=== PATIENT | male | born 1960 | race Caucasian/White ===

== ENCOUNTER 2017-10-15 12:58 | Inpatient (IN) | payer MEDICAID, OTHER ==
[~2017-10-15] VITALS: Ht 190.5 cm; Wt 73.9 kg
[2017-10-15] MEDS ORDERED: DIAZ10 PO (13:07)
[2017-10-15] MEDS ORDERED: LORA0.5T2 PO (13:07)
[2017-10-15] MEDS ORDERED: HALOPERIDOL 5 MG TABLET PO ONE (13:30)
[2017-10-15] MEDS ORDERED: DiphenhydrAMINE HCL 50 MG CAPSULE PO ONE (13:30)
[2017-10-15] MEDS ORDERED: LORazepam 2 MG TABLET PO ONE (13:30)
[2017-10-15 17:25] VITALS: BP 145/63
[2017-10-15] MEDS: LORazepam 2 MG TABLET PO PRN (18:45)
[2017-10-15] MEDS: HALOPERIDOL 5 MG TABLET PO PRN (18:45)
[2017-10-15] MEDS: BACITRACIN 28.4 GM OINTMENT TP SCH (20:03)
[2017-10-15] MEDS: NICOTINE 14 MG/24 HOUR PATCH TD SCH (20:03)
[2017-10-15] MEDS: ZOLPIDEM TARTRATE 10 MG TABLET PO PRN (20:34)
[2017-10-16 02:51] VITALS: BP 135/79
[2017-10-16] MEDS: BACITRACIN 28.4 GM OINTMENT TP SCH ×2 (08:08→16:39)
[2017-10-16] MEDS: NICOTINE 14 MG/24 HOUR PATCH TD SCH (08:08)
[2017-10-16] MEDS: LORazepam 2 MG TABLET PO PRN ×3 (08:08→21:06)
[2017-10-16 08:14] VITALS: BP 114/80
[2017-10-16] MEDS ORDERED: NICOTINE 14 MG/24 HOUR PATCH TD SCH (09:00)
[2017-10-16] MEDS ORDERED: PETROLATUM,WHITE 71 GM JELLY TP PRN (09:30)
[2017-10-16] MEDS ORDERED: BENZOCAINE/MENTHOL LOZENGE MM PRN (09:30)
[2017-10-16] MEDS ORDERED: ACETAMINOPHEN 325 MG TABLET PO PRN (09:30)
[2017-10-16] MEDS ORDERED: ONDANSETRON HCL 4 MG TABLET PO PRN (09:30)
[2017-10-16] MEDS ORDERED: MAG HYDROX/AL HYDROX/SIMETH ES 30 ML SUSPENSION UDCUP PO PRN (09:30)
[2017-10-16] MEDS ORDERED: LOPERAMIDE HCL 2 MG CAPSULE PO PRN (09:30)
[2017-10-16] MEDS ORDERED: MAGNESIUM HYDROXIDE SUSPENSION 30 ML UDCUP PO PRN (09:30)
[2017-10-16] MEDS ORDERED: CloNIDine HCL 0.1 MG TABLET PO PRN (09:30)
[2017-10-16] MEDS ORDERED: IBUPROFEN 600 MG TABLET PO PRN (09:30)
[2017-10-16] MEDS ORDERED: BACITRACIN 28.4 GM OINTMENT TP PRN (09:30)
[2017-10-16] MEDS ORDERED: ALBUTEROL SULFATE HFA 90 MCG/PUFF 8 GM INHALER IH PRN (09:30)
[2017-10-16] MEDS: HALOPERIDOL 5 MG TABLET PO PRN (14:36)
[2017-10-16 16:33] VITALS: BP 104/62
[2017-10-16] MEDS: DIVALPROEX SODIUM 500 MG DR TABLET PO SCH (16:39)
[2017-10-16] MEDS: ZOLPIDEM TARTRATE 10 MG TABLET PO PRN (21:06)
[2017-10-16] MEDS: MIRTAZAPINE 15 MG TABLET PO SCH (21:06)
[2017-10-16] MEDS: OLANZapine 10 MG TABLET PO SCH (21:06)
[2017-10-17] MEDS: HALOPERIDOL 5 MG TABLET PO PRN ×2 (00:56→16:45)
[2017-10-17] MEDS: LORazepam 2 MG TABLET PO PRN ×2 (00:56→16:45)
[2017-10-17 00:58] VITALS: BP 135/80
[2017-10-17 08:12] VITALS: BP 109/62
[2017-10-17] MEDS: NICOTINE 14 MG/24 HOUR PATCH TD SCH (08:25)
[2017-10-17] MEDS: BACITRACIN 28.4 GM OINTMENT TP SCH ×2 (08:26→16:45)
[2017-10-17] MEDS: OMEPRAZOLE 20 MG CAPSULE PO SCH (08:26)
[2017-10-17] MEDS: DOCUSATE SODIUM 100 MG CAPSULE PO SCH (08:26)
[2017-10-17] MEDS: DIVALPROEX SODIUM 500 MG DR TABLET PO SCH ×2 (08:26→16:45)
[2017-10-17 16:26] VITALS: BP 124/61
[2017-10-17] MEDS: OLANZapine 10 MG TABLET PO SCH (20:19)
[2017-10-17] MEDS: ZOLPIDEM TARTRATE 10 MG TABLET PO PRN (20:20)
[2017-10-17] MEDS: MIRTAZAPINE 15 MG TABLET PO SCH (20:20)
[2017-10-18 06:43] VITALS: BP 110/65
[2017-10-18 08:10] VITALS: BP 124/62
[2017-10-18] MEDS: HALOPERIDOL 5 MG TABLET PO PRN ×2 (08:41→16:15)
[2017-10-18] MEDS: NICOTINE 14 MG/24 HOUR PATCH TD SCH (08:41)
[2017-10-18] MEDS: DIVALPROEX SODIUM 500 MG DR TABLET PO SCH ×2 (08:41→16:15)
[2017-10-18] MEDS: DOCUSATE SODIUM 100 MG CAPSULE PO SCH (08:41)
[2017-10-18] MEDS: LORazepam 2 MG TABLET PO PRN ×2 (08:41→16:15)
[2017-10-18] MEDS: OMEPRAZOLE 20 MG CAPSULE PO SCH (08:41)
[2017-10-18] MEDS: BACITRACIN 28.4 GM OINTMENT TP SCH ×2 (08:52→17:05)
[2017-10-18 16:16] VITALS: BP 116/65
[2017-10-18] MEDS ORDERED: HALOPERIDOL LACTATE 5 MG/ML VIAL IM ONE (19:15)
[2017-10-18] MEDS ORDERED: DiphenhydrAMINE HCL 50 MG/ML VIAL IM ONE (19:15)
[2017-10-18] MEDS ORDERED: LORazepam 2 MG/ML VIAL IM ONE (19:15)
[2017-10-18] MEDS: MIRTAZAPINE 15 MG TABLET PO SCH (20:43)
[2017-10-18] MEDS: OLANZapine 10 MG TABLET PO SCH (20:43)
[2017-10-19 04:23] VITALS: BP 117/80
[2017-10-19 08:21] VITALS: BP 103/60
[2017-10-19] MEDS: BACITRACIN 28.4 GM OINTMENT TP SCH ×2 (08:29→16:33)
[2017-10-19] MEDS: OMEPRAZOLE 20 MG CAPSULE PO SCH (08:29)
[2017-10-19] MEDS: LORazepam 2 MG TABLET PO PRN ×3 (08:29→20:34)
[2017-10-19] MEDS: DOCUSATE SODIUM 100 MG CAPSULE PO SCH (08:29)
[2017-10-19] MEDS: HALOPERIDOL 5 MG TABLET PO PRN ×2 (08:29→16:33)
[2017-10-19] MEDS: DIVALPROEX SODIUM 500 MG DR TABLET PO SCH ×2 (08:29→16:33)
[2017-10-19] MEDS: NICOTINE 14 MG/24 HOUR PATCH TD SCH (08:29)
[2017-10-19 16:03] VITALS: BP 130/83
[2017-10-19] MEDS: ZOLPIDEM TARTRATE 10 MG TABLET PO PRN (20:34)
[2017-10-19] MEDS: MIRTAZAPINE 15 MG TABLET PO SCH (20:34)
[2017-10-19] MEDS: OLANZapine 10 MG TABLET PO SCH (20:34)
[2017-10-20] MEDS: DOCUSATE SODIUM 100 MG CAPSULE PO SCH (08:08)
[2017-10-20] MEDS: DIVALPROEX SODIUM 500 MG DR TABLET PO SCH (08:08)
[2017-10-20] MEDS: NICOTINE 14 MG/24 HOUR PATCH TD SCH (08:08)
[2017-10-20] MEDS: BACITRACIN 28.4 GM OINTMENT TP SCH (08:08)
[2017-10-20] MEDS: OMEPRAZOLE 20 MG CAPSULE PO SCH (08:08)
[2017-10-20 08:18] VITALS: BP 131/68
[2017-10-20] MEDS ORDERED: DIVA500T35 PO (08:32)
[2017-10-20] MEDS ORDERED: MIRT15 PO (08:33)
[2017-10-20] MEDS ORDERED: OLAN10TA3 PO (08:34)
== END 2017-10-20 14:30 | disposition home or self-care (01) | DRG 750 ==
LOC: EMS 12:59 → B3A 15:31
PROVIDERS: ADMIT Psychiatry & Neurology Psychiatry; ATTEND Psychiatry & Neurology Psychiatry
DX: F20.0 Paranoid schizophrenia (principal); Z91.19 Patient's noncompliance with other medical treatment and regimen; J44.9 Chronic obstructive pulmonary disease, unspecified; G47.00 Insomnia, unspecified; K21.9 Gastro-esophageal reflux disease without esophagitis; K59.00 Constipation, unspecified; F17.200 Nicotine dependence, unspecified, uncomplicated; F12.90 Cannabis use, unspecified, uncomplicated; F14.90 Cocaine use, unspecified, uncomplicated; Z79.899 Other long term (current) drug therapy; Z59.0 Homelessness; Z71.6 Tobacco abuse counseling
CPT/HCPCS: 87070; 87205; 99285; J1200; J1630; J2060